=== PATIENT | male | born 1950 | race Caucasian/White ===

== ENCOUNTER 2021-03-09 21:43 | Inpatient (IN) | payer OTHER ==
[~2021-03-09] VITALS: Ht 175.3 cm; Wt 90.7 kg
[2021-03-09] MEDS ORDERED: diphenhydrAMINE 50 MG/1 ML VIAL IV ONE (22:15)
[2021-03-09] MEDS ORDERED: IV NORMAL SALINE 1000 ML BAG IV ONE (22:15)
[2021-03-09] MEDS ORDERED: METOCLOPRAMIDE HCL 10 MG/2 ML VIAL IV ONE (22:15)
[2021-03-09] MEDS ORDERED: KETOROLAC TROMETHAMINE 30 MG INJ IVP ONE (22:15)
[2021-03-09] MEDS ORDERED: diphenhydrAMINE 50 MG/1 ML VIAL ONE (23:16)
[2021-03-09] MEDS ORDERED: METOCLOPRAMIDE HCL 10 MG/2 ML VIAL ONE (23:17)
[2021-03-09] MEDS ORDERED: KETOROLAC TROMETHAMINE 30 MG INJ ONE (23:17)
[2021-03-09 23:29] LABS: HEMATOCRIT 37.2 % (36.7-47.1); MEAN CORPUSCULAR VOLUME 94.4 fL (73.0-96.2); PLATELET COUNT (AUTO) 205 K/uL (152-348)
[2021-03-09 23:53] LABS: CREATININE 1.7 mg/dL (0.6-1.3); POTASSIUM 4.2 mmol/L (3.5-5.1)
[2021-03-10] MEDS ORDERED: FUROSEMIDE 40 MG/4 ML VIAL IV ONE (00:30)
[2021-03-10] MEDS ORDERED: CLOP75TA15 PO (01:17)
[2021-03-10] MEDS ORDERED: RIVA20TA PO (01:17)
[2021-03-10] MEDS ORDERED: PREG200C28 PO (01:17)
[2021-03-10] MEDS ORDERED: IBUP-1957 PO (01:17)
[2021-03-10] MEDS ORDERED: EZET10TA15 PO (01:17)
[2021-03-10] MEDS ORDERED: LOSA100T31 PO (01:17)
[2021-03-10] MEDS ORDERED: FLUT16SP16 NS (01:17)
[2021-03-10] MEDS ORDERED: TAMS-3 PO (01:17)
[2021-03-10] MEDS ORDERED: SITA50TA PO (01:17)
[2021-03-10] MEDS ORDERED: METO25TA6 PO (01:17)
[2021-03-10] MEDS ORDERED: GLIP10TA11 PO (01:17)
[2021-03-10] MEDS ORDERED: EMPA10TA PO (01:17)
[2021-03-10] MEDS ORDERED: CETI-90 PO (01:17)
[2021-03-10] MEDS ORDERED: ATOR80TA PO (01:17)
[2021-03-10] MEDS ORDERED: AMLO2.5T4 PO (01:17)
[2021-03-10] MEDS ORDERED: FUROSEMIDE 40 MG/4 ML VIAL ONE (01:43)
--- NOTE | 2021-03-10 01:46 | NUR ---
Pt moved without difficulty from 5A to 4B because a new pt in the waiting room is r/o covid and needed a single room. fresh VS obtained. 116/67, 65bpm, 97% RA, 16 rpm.
--- NOTE | 2021-03-10 03:26 | NUR ---
PAGED EPIC PANEL, WAITING FOR MARTHA TITUS STRUCTURES MECHANIC TO CALL BACK.
--- NOTE | 2021-03-10 03:32 | NUR ---
DR ASIF SPOKE TO ARIELA WET ROOM SUPERVISOR HOSPITAL EDUCATION COORDINATOR FOR [facility] WHO ACCEPTED PATIENT.
[2021-03-10] MEDS ORDERED: Z GUARD REMEDY PASTE 57 GM TUBE TOP PRN (05:30)
[2021-03-10] MEDS ORDERED: ACETAMINOPHEN 325 MG TABLET PO PRN (05:30)
[2021-03-10] MEDS ORDERED: MAGNESIUM HYDROXIDE 30 ML LIQUID UDC PO PRN (05:30)
[2021-03-10] MEDS ORDERED: ONDANSETRON 4 MG/2 ML VIAL IV PRN (05:30)
[2021-03-10] MEDS ORDERED: TAMSULOSIN HCL 0.4 MG CAP.SR.24H PO ONE (05:30)
--- NOTE | 2021-03-10 08:31 | NUR ---
Charge nurse Mao just informed me that pt is assigned to room 321 and to call them for report and try to expodite transport upstairs to tele. Pt is resting comfortably, VSS, in no appearent distress. Pt waiting patiently for transfer upstairs.
[2021-03-10] MEDS ORDERED: CLOPIDOGREL 75 MG TABLET PO SCH (09:00)
[2021-03-10] MEDS ORDERED: CETIRIZINE HCL 10 MG TABLET PO SCH (09:00)
[2021-03-10] MEDS ORDERED: LOSARTAN POTASSIUM 50 MG TABLET PO SCH (09:00)
[2021-03-10] MEDS: glipiZIDE 10 MG TABLET PO SCH ×2 (09:00→17:27)
[2021-03-10] MEDS: IBUPROFEN 800 MG TABLET PO SCH ×3 (09:00→17:27)
[2021-03-10] MEDS ORDERED: FLUTICASONE PROP NASAL SPRAY 16 GM BOTTLE NS SCH (09:00)
[2021-03-10] MEDS: PREGABALIN 100 MG CAPSULE PO SCH ×2 (09:00→17:00)
--- NOTE | 2021-03-10 10:00 | NUR ---
Pt given breakfast tray and set up to eat breakfast. approx 65% of tray eaten. Morning meds given without difficulty. licensed final expense agents called to recieve report. Thorough report given to senior telecommunications consultant using SBAR method. Floor RN gave green light transport diane. Pt is being loaded up and prepared for transfer to room 327. Pt stable VSS, BP: 127/68, 92bpm,16rpm,97% RA. No s/sx of distress present.
[2021-03-10] MEDS ORDERED: CLOPIDOGREL 75 MG TABLET ONE (10:49)
[2021-03-10] MEDS ORDERED: IBUPROFEN 800 MG TABLET ONE (10:51)
--- NOTE | 2021-03-10 11:00 | NUR ---
ADMITTED PATIENT 70 YEARS OLD MALE FROM ED BY KERVIN WITH DX OF CHF PATIENT PLACED INTO BED FIXED AND MADE COMFORTABLE HE IS ALERT AND ORIENTED DENIES PAIN OR DISCOMFORTS AT THIS TIME PATIENT ORIENTED TO HIS ROOM AND HOSPITAL PROTOCOL ON ROOM AIR WITH NO SHORTNESS OF BREATH WILL CONTINUE TO OBSERVE.
[2021-03-10 12:00] VITALS: BP 102/59
[2021-03-10 12:10] LABS: HEMATOCRIT 37.9 % (36.7-47.1); MEAN CORPUSCULAR HEMOGLOBIN 31.4 uug (23.8-33.4); MEAN CORPUSCULAR VOLUME 95.7 fL (73.0-96.2); PLATELET COUNT (AUTO) 201 K/uL (152-348)
[2021-03-10 12:23] LABS: CREATININE 1.6 mg/dL (0.6-1.3); MAGNESIUM 1.8 mg/dL (1.8-2.4); POTASSIUM 4.1 mmol/L (3.5-5.1)
--- NOTE | 2021-03-10 13:31 | NUR ---
PATIENT SEEN BY MELI LEDEZMA AND SHE STATED THAT SHE MIGHT DISCHARGE PATIENT HOME TODAY BUT STATED TO SEND URINE FOR A URINALYSIS FIRST AND SHE WILL REVIEW AND DISCHARGE PATIENT LATER TODAY.
--- NOTE | 2021-03-10 16:00 | NUR ---
NOTED DISCHARGE ORDER PATIENT TO BE DISCHARGED TODAY HOME AND HE IS AWARE WILL GIVE URINE SPECIMEN SOON HE CAN.
[2021-03-10 16:13] VITALS: BP 116/60
[2021-03-10] MEDS ORDERED: RIVAROXABAN 10 MG TABLET PO SCH (18:00)
--- NOTE | 2021-03-10 18:30 | NUR ---
DISCHARGE INSTRUCTIONS GIVEN AND PATIENT INSTRUCTED THAT HE IS DISCHARGED AND WILL NEED TO CALL HIS SHIPPING LEAD PERSON FOR A FOLLOW UP APPOINTMENT WITHIN THE NEXT ONE TO TWO WEEKS AND HE EXPRESSED UNDERSTANDING STATED WILL LIKELY LEAVE AROUND [address] [employer] WILL ENDORSE ALL HIS DISCHARGE PAPER WORKS ARE SIGNED ALREADY [employer]AXI VOUCHER PROVIDED BY THE SUP ALSO JIMMY WILL CALL THE TAXI WHEN HE IS READY TO LEAVE.
[2021-03-10 18:40] LABS: *BILIRUBIN,URIN NEGATIVE (NEGATIVE); *CLARITY,URINE CLEAR (CLEAR); *COLOR,URINE YELLOW (YELLOW); *KETONES,URINE NEGATIVE (NEGATIVE); *UROBILINOGEN,URINE 0.2 E.U./dl (NORMAL); LEUKOCYTE ESTERASE ,URINE NEGATIVE (NEGATIVE); NITRITE, URINE NEGATIVE (NEGATIVE)
[2021-03-10 18:43] LABS: *BLOOD, URINE TRACE (NEGATIVE); UGLUCOSE 3+ (NEGATIVE)
[2021-03-10 19:01] LABS: BACTERIA,URINE NONE SEEN /HPF (NONE SEEN); SQUAMOUS EPITHELIAL CELL,UR FEW /HPF (NONE SEEN); WBC,URINE 0-3 /HPF (0-3)
[2021-03-10] MEDS ORDERED: EZETIMIBE 10 MG TABLET PO SCH (21:00)
[2021-03-10] MEDS ORDERED: ATORVASTATIN 40 MG TABLET PO SCH (21:00)
--- NOTE | 2021-03-10 21:29 | NUR ---
NO TAXI AVAILABLE, PT REQUESTED A FRIEND TO PICK HIM UP VIA HIS CAR, DISCHARGED IN APPARENTLY FAIR CONDITION, ALL PERSONAL BELONGINGS PROVIDED TO PT.
== END 2021-03-10 21:30 | disposition home or self-care (01) | DRG 291 ==
LOC: ER 21:46 → TRANSITION 03-10 03:30 → TELE3 03-10 10:38
PROVIDERS: ADMIT Nurse Practitioner Acute Care; ATTEND Registered Nurse
DX: I13.0 Hypertensive heart and chronic kidney disease with heart failure and stage 1 through stage 4 chronic kidney disease, or unspecified chronic kidney disease (principal); I50.31 Acute diastolic (congestive) heart failure; I69.354 Hemiplegia and hemiparesis following cerebral infarction affecting left non-dominant side; I48.0 Paroxysmal atrial fibrillation; Z79.02 Long term (current) use of antithrombotics/antiplatelets; Z79.01 Long term (current) use of anticoagulants; N18.9 Chronic kidney disease, unspecified; I65.21 Occlusion and stenosis of right carotid artery; E66.9 Obesity, unspecified; Z68.29 Body mass index [BMI] 29.0-29.9, adult; E11.22 Type 2 diabetes mellitus with diabetic chronic kidney disease; Z87.891 Personal history of nicotine dependence; Z79.84 Long term (current) use of oral hypoglycemic drugs; I49.1 Atrial premature depolarization; I49.3 Ventricular premature depolarization; Z71.3 Dietary counseling and surveillance
CPT/HCPCS: 36415; 70030-TC; 71045; 83735; 85025; 93005; 93307; A4663; G0378; J1200; J1885; J1940; J2765; J3535; J7030

== ENCOUNTER 2021-04-03 18:17 | Emergency (ER) | payer MEDICARE, OTHER ==
[~2021-04-03] VITALS: Ht 182.9 cm; Wt 99.8 kg
[~2021-04-03 18:17] MED LIST: AMLO2.5T4 PO; ATOR80TA PO; CETI-90 PO; EMPA10TA PO; EZET10TA15 PO; FLUT16SP16 NS; GLIP10TA11 PO; IBUP-1957 PO; LOSA100T31 PO; METO25TA6 PO; PREG200C28 PO; RIVA20TA PO; SITA50TA PO; TAMS-3 PO
--- NOTE | 2021-04-03 19:26 | NUR ---
No bleeding noted after Dr Garcia place surgicel foam.
[2021-04-03 19:34] VITALS: BP 110/70
--- NOTE | 2021-04-03 19:34 | NUR ---
Patient discharged to home in stable condition with friend taking patient home. Written and verbal after care instructions given. Patient verbalizes understanding of instructions. Stressed follow up or return to ER for worsening s/s.
== END 2021-04-03 19:35 | disposition home or self-care (01) ==
LOC: ER 18:19
DX: S61.012A Laceration without foreign body of left thumb without damage to nail, initial encounter (principal); I50.9 Heart failure, unspecified; E11.9 Type 2 diabetes mellitus without complications; Z91.018 Allergy to other foods; Z79.1 Long term (current) use of non-steroidal anti-inflammatories (NSAID); Z79.899 Other long term (current) drug therapy; W26.0XXA Contact with knife, initial encounter; Y93.89 Activity, other specified; Y92.89 Other specified places as the place of occurrence of the external cause; Y99.8 Other external cause status
CPT/HCPCS: A4217; A4663

== ENCOUNTER 2024-07-08 19:25 | Inpatient (IN) | payer MEDICARE, OTHER ==
[~2024-07-08] VITALS: Ht 182.9 cm; Wt 79.4 kg
[2024-07-08 20:12] LABS: BASOPHILS # (AUTO) 0.1 K/UL (0.0-0.2); BASOPHILS % (AUTO) 0.9 % (0.0-2.0); EOSINOPHILS # (AUTO) 0.2 K/uL (0.0-0.7); EOSINOPHILS % (AUTO) 2.4 % (0.0-7.0); HEMATOCRIT 34.7 % (36.7-47.1); HEMOGLOBIN 11.6 g/dL (12.5-16.3); LYMPHOCYTES % (AUTO) 11.1 % (20.5-51.5); MEAN CORPUSCULAR HEMOGLOBIN 30.9 uug (23.8-33.4); MEAN CORPUSCULAR HGB CONC 33 g/dL (32.5-36.3); MEAN CORPUSCULAR VOLUME 92.8 fL (73.0-96.2); MONOCYTES # (AUTO) 0.7 K/uL (0.1-1.30); MONOCYTES % (AUTO) 7.8 % (0.0-11.0); NEUTROPHILS # (AUTO) 6.7 K/uL (1.8-8.9); NEUTROPHILS % (AUTO) 77.8 % (38.5-71.5); PLATELET COUNT (AUTO) 414 K/uL (152-348); RED BLOOD CELL COUNT(AUTO) 3.74 MIL/uL (4.06-5.63); RED CELL DISTRIBUTION WIDTH 15.2 % (12.1-16.2); WHITE BLOOD COUNT (AUTO) 8.6 K/uL (3.6-10.2)
[2024-07-08 20:16] LABS: DIFFERENTIAL COMMENT 1
[2024-07-08 20:25] LABS: CALCIUM 9.3 mg/dL (8.5-10.1); CARBON DIOXIDE 30 mmol/L (21-32); CHLORIDE 108 mmol/L (98-107); CREATININE 1.3 mg/dL (0.6-1.3); GLUCOSE 260 mg/dL (74-106); POTASSIUM 4.8 mmol/L (3.5-5.1); SODIUM SERUM 144 mmol/L (136-145); UREA NITROGEN, BLOOD 29 mg/dL (7-18)
[2024-07-08 20:33] LABS: *BILIRUBIN,URIN NEGATIVE (NEGATIVE); *CLARITY,URINE CLEAR (CLEAR); *COLOR,URINE YELLOW (YELLOW); *KETONES,URINE NEGATIVE (NEGATIVE); *PROTEIN,URINE 2+ (NEGATIVE); *UROBILINOGEN,URINE 0.2 E.U./dl (NORMAL); LEUKOCYTE ESTERASE ,URINE NEGATIVE (NEGATIVE); NITRITE, URINE NEGATIVE (NEGATIVE); PH,URINE 5.5 (5.0-8.0); UGLUCOSE TRACE (NEGATIVE)
[2024-07-08 20:33] LABS: ALANINE AMINOTRANSFERASE 20 U/L (16-63); ALBUMIN 2.7 g/dL (3.4-5.0); ALKALINE PHOSPHATASE 110 U/L (50-136); ASPARTATE AMINOTRANSFERASE 14 U/L (15-37); BILIRUBIN,DIRECT 0.1 mg/dL (0.0-0.2); BILIRUBIN,TOTAL 0.3 mg/dL (0.2-1.0); TOTAL PROTEIN, SERUM 6.3 g/dL (6.4-8.2)
[2024-07-08 20:35] LABS: *BLOOD, URINE NEGATIVE (NEGATIVE); RBC,URINE 0-3 /HPF (0-3); WBC,URINE 0-3 /HPF (0-3)
[2024-07-08 20:36] LABS: ETHANOL < 3 MG/DL (0-10)
[2024-07-08 20:43] LABS: *AMPHETAMINE, URINE NEGATIVE (NEGATIVE); *BARBITURATE, URINE NEGATIVE (NEGATIVE); *BENZODIAZEPINE, URINE NEGATIVE (NEGATIVE); *CANNABINOID, URINE NEGATIVE (NEGATIVE); *COCCAINE, URINE NEGATIVE (NEGATIVE); *OPIATE, URINE NEGATIVE (NEGATIVE); *PHENCYCLIDINE SCREEN,URINE NEGATIVE (NEGATIVE); FENTANYL, URINE NEGATIVE (NEGATIVE)
[2024-07-08] MEDS ORDERED: HALOPERIDOL LACTATE 5 MG/1 ML VIAL ONE (20:57)
[2024-07-08] MEDS: HALOPERIDOL LACTATE 5 MG/1 ML VIAL IM ONE (21:28)
[2024-07-09] MEDS ORDERED: ACETAMINOPHEN 325 MG TABLET PO PRN (02:30)
[2024-07-09] MEDS ORDERED: MAGNESIUM HYDROXIDE 30 ML LIQUID UDC PO PRN (02:30)
[2024-07-09] MEDS ORDERED: ZOLPIDEM 5 MG TABLET PO PRN (02:30)
[2024-07-09] MEDS: BLOOD SUGAR DIAGNOSTIC 1 EACH STRIP VI ONE (02:30)
[2024-07-09] MEDS ORDERED: MAG HYDROX/AL HYDROX/SIMETH 30 ML LIQUID UDC PO PRN (02:30)
[2024-07-09] MEDS: QUETIAPINE FUMARATE 25 MG TABLET PO ONE (02:30)
[2024-07-09] MEDS ORDERED: LIDO5CRE18 TP (03:20)
[2024-07-09] MEDS ORDERED: LOPE2TAB25 PO (03:20)
[2024-07-09] MEDS ORDERED: TIZA-180 PO (03:20)
[2024-07-09] MEDS ORDERED: FLUT16SP BNOSTRILS (03:20)
[2024-07-09] MEDS ORDERED: TAMS-3 PO (03:20)
[2024-07-09] MEDS ORDERED: SACU1TAB PO (03:20)
[2024-07-09] MEDS ORDERED: INSU100V39 SQ ×2 (03:20)
[2024-07-09] MEDS ORDERED: PREG150C PO (03:20)
[2024-07-09] MEDS ORDERED: IPRA0.2S48 NEB (03:20)
[2024-07-09] MEDS ORDERED: QUET50TA PO (03:20)
[2024-07-09] MEDS ORDERED: BENZ-13 PO (03:20)
[2024-07-09] MEDS ORDERED: FOLI0.8T2 PO (03:20)
[2024-07-09] MEDS ORDERED: SENN8.6T19 PO (03:20)
[2024-07-09] MEDS ORDERED: DOCU100C36 PO (03:20)
[2024-07-09] MEDS ORDERED: CARV3.122 PO (03:20)
[2024-07-09] MEDS ORDERED: QUET25TA36 PO (03:20)
[2024-07-09] MEDS ORDERED: CHOL10005 PO (03:20)
[2024-07-09] MEDS ORDERED: SERT-440 PO (03:20)
[2024-07-09] MEDS ORDERED: MAGN400O6 PO (03:20)
[2024-07-09] MEDS ORDERED: NALO4SPR BNOSTRILS (03:20)
[2024-07-09] MEDS ORDERED: FURO20TA4 PO (03:20)
[2024-07-09] MEDS ORDERED: EZET10TA15 PO (03:20)
[2024-07-09] MEDS ORDERED: POLY17PO4 PO (03:20)
[2024-07-09] MEDS ORDERED: INSU100I26 SQ (03:20)
[2024-07-09] MEDS ORDERED: ACET325T53 PO (03:20)
[2024-07-09] MEDS ORDERED: HYDR-894 PO (03:20)
[2024-07-09] MEDS ORDERED: RIVA15TA PO (03:20)
[2024-07-09] MEDS ORDERED: BISA10SU61 RC (03:20)
[2024-07-09] MEDS ORDERED: NA P133E RC (03:20)
[2024-07-09] MEDS ORDERED: GLUC1KIT IM (03:20)
[2024-07-09] MEDS ORDERED: DIPH25TA25 PO (03:20)
[2024-07-09] MEDS ORDERED: QUETIAPINE FUMARATE 25 MG TABLET PO PRN (04:15)
[2024-07-09 08:28] VITALS: BP 125/56; TEMP 98.5; O2SAT 98
[2024-07-09] MEDS ORDERED: IPRA3AMP23 IH (10:31)
[2024-07-09] MEDS ORDERED: FLEET ENEMA 133 ML BOTTLE RC PRN (11:45)
[2024-07-09] MEDS ORDERED: MIRALAX 17 GM POWD.PACK PO PRN (11:45)
[2024-07-09] MEDS ORDERED: BISACODYL 10 MG SUPP.RECT RC PRN (11:45)
[2024-07-09] MEDS ORDERED: DEXTROSE 50% 50 ML DISP.SYRIN IV PRN (11:45)
[2024-07-09] MEDS: DIVALPROEX 125 MG TABLET.DR PO SCH (12:15)
[2024-07-09] MEDS: BLOOD SUGAR DIAGNOSTIC 1 EACH STRIP VI SCH (16:19)
[2024-07-09] MEDS: PREGABALIN 50 MG CAPSULE PO SCH (16:30)
[2024-07-09] MEDS: SENNOSIDES 1 TABLET PO SCH (16:31)
[2024-07-09] MEDS: CARVEDILOL 3.125 MG TABLET PO SCH (16:34)
[2024-07-09 17:17] VITALS: BP 128/58; TEMP 98.5; O2SAT 98
[2024-07-09 19:46] VITALS: BP 163/79; TEMP 98; O2SAT 94
[2024-07-09] MEDS: TAMSULOSIN HCL 0.4 MG CAP.SR.24H PO SCH (21:09)
[2024-07-09] MEDS: QUETIAPINE FUMARATE 25 MG TABLET PO SCH (21:10)
[2024-07-09] MEDS: INSULIN REGULAR, HUMAN 1000 UNIT/10 ML VIAL SQ PRN (21:50)
[2024-07-10 08:19] VITALS: BP 114/66; TEMP 98; O2SAT 98
[2024-07-10] MEDS: FOLIC ACID/VITAMIN B COMP W-C TABLET PO SCH (08:57)
[2024-07-10] MEDS: CHOLECALCIFEROL 1,000 UNIT TABLET PO SCH (08:57)
[2024-07-10] MEDS: SACUBITRIL/VALSARTAN 24 MG-26 TABLET PO SCH (08:58)
[2024-07-10] MEDS: RIVAROXABAN 15 MG TABLET PO SCH (09:00)
[2024-07-10 16:09] VITALS: BP 116/72; TEMP 98; O2SAT 98
[2024-07-10 20:00] VITALS: BP 110/53; TEMP 98.5; O2SAT 95
[2024-07-11 08:03] VITALS: BP 124/56; TEMP 98; O2SAT 90
[2024-07-11] MEDS: FUROSEMIDE 20 MG TABLET PO SCH (08:37)
[2024-07-11] MEDS: GLIMEPIRIDE 2 MG TABLET PO SCH (08:40)
[2024-07-11 15:42] VITALS: BP 106/54; TEMP 98; O2SAT 96
[2024-07-11 20:00] VITALS: BP 110/60; TEMP 97.6; O2SAT 95
[2024-07-11] MEDS: QUETIAPINE FUMARATE 25 MG TABLET PO SCH (20:22)
[2024-07-11] MEDS: DIVALPROEX 250 MG TABLET.DR PO SCH (20:22)
[2024-07-11] MEDS ORDERED: DIVALPROEX 125 MG TABLET.DR PO SCH (21:00)
[2024-07-12] MEDS ORDERED: ALBUTEROL SULFATE 2.5 MG/3 ML NEBU NEB PRN (07:30)
[2024-07-12 08:22] VITALS: BP 129/61; TEMP 98.5; O2SAT 98
[2024-07-12] MEDS: GLIMEPIRIDE 2 MG TABLET PO SCH (09:30)
[2024-07-12] MEDS: FLUTICASONE/VILANTEROL 1 EACH BLST.W.DEV INH SCH (09:36)
[2024-07-12 16:02] VITALS: BP 106/54; TEMP 98; O2SAT 96
[2024-07-12 19:44] VITALS: BP 126/66; TEMP 98.6; O2SAT 96
[2024-07-13 07:33] LABS: BASOPHILS # (AUTO) 0.1 K/UL (0.0-0.2); BASOPHILS % (AUTO) 1.4 % (0.0-2.0); EOSINOPHILS # (AUTO) 0.2 K/uL (0.0-0.7); EOSINOPHILS % (AUTO) 3.2 % (0.0-7.0); HEMATOCRIT 33.7 % (36.7-47.1); HEMOGLOBIN 11.1 g/dL (12.5-16.3); LYMPHOCYTES # (AUTO) 1.6 K/uL (0.8-4.8); LYMPHOCYTES % (AUTO) 27.1 % (20.5-51.5); MEAN CORPUSCULAR HEMOGLOBIN 30.8 uug (23.8-33.4); MEAN CORPUSCULAR HGB CONC 33 g/dL (32.5-36.3); MEAN CORPUSCULAR VOLUME 93.3 fL (73.0-96.2); MONOCYTES # (AUTO) 0.6 K/uL (0.1-1.30); MONOCYTES % (AUTO) 9.3 % (0.0-11.0); NEUTROPHILS # (AUTO) 3.5 K/uL (1.8-8.9); PLATELET COUNT (AUTO) 332 K/uL (152-348); RED BLOOD CELL COUNT(AUTO) 3.61 MIL/uL (4.06-5.63); RED CELL DISTRIBUTION WIDTH 15.3 % (12.1-16.2)
[2024-07-13 07:42] LABS: DIFFERENTIAL COMMENT 1
[2024-07-13 07:59] LABS: THYROID STIMULATING HORMONE 2.174 mIU/mL (0.358-3.740)
[2024-07-13 08:13] LABS: ALANINE AMINOTRANSFERASE 16 U/L (16-63); ALBUMIN 2.4 g/dL (3.4-5.0); ALKALINE PHOSPHATASE 89 U/L (50-136); ASPARTATE AMINOTRANSFERASE 13 U/L (15-37); BILIRUBIN,TOTAL 0.1 mg/dL (0.2-1.0); CALCIUM 8.7 mg/dL (8.5-10.1); CARBON DIOXIDE 31 mmol/L (21-32); CHLORIDE 110 mmol/L (98-107); CREATININE 1.1 mg/dL (0.6-1.3); GLUCOSE 145 mg/dL (74-106); MAGNESIUM 1.9 mg/dL (1.8-2.4); PHOSPHOROUS 4.5 mg/dL (2.5-4.9); POTASSIUM 4.4 mmol/L (3.5-5.1); SODIUM SERUM 144 mmol/L (136-145); TOTAL PROTEIN, SERUM 5.4 g/dL (6.4-8.2); UREA NITROGEN, BLOOD 40 mg/dL (7-18)
[2024-07-13 08:58] VITALS: BP 125/71; TEMP 98.5; O2SAT 98
[2024-07-13] MEDS: ASPIRIN/ACETAMINOPHEN/CAFFEINE TABLET PO PRN (15:22)
[2024-07-13 16:15] VITALS: BP 123/50; TEMP 97.6; O2SAT 95
[2024-07-13 20:00] VITALS: BP 100/52; TEMP 97.9; O2SAT 91
[2024-07-14 08:28] VITALS: BP 119/68; TEMP 98.5; O2SAT 98
[2024-07-14] MEDS: QUETIAPINE FUMARATE 25 MG TABLET PO PRN (09:05)
[2024-07-14 16:44] VITALS: BP 118/51; TEMP 97.7; O2SAT 98
[2024-07-14 20:00] VITALS: BP 150/61; TEMP 97.3; O2SAT 95
[2024-07-15] MEDS: ZOLPIDEM 5 MG TABLET PO PRN (00:29)
[2024-07-15 08:01] VITALS: BP 148/52; TEMP 97.6; O2SAT 97
[2024-07-15] MEDS: DIVALPROEX 125 MG TABLET.DR PO SCH (13:13)
[2024-07-15] MEDS ORDERED: DIVALPROEX 250 MG TABLET.DR PO SCH (14:00)
[2024-07-15 16:00] VITALS: BP 110/45; TEMP 97.2; O2SAT 97
[2024-07-15 20:24] VITALS: BP 136/61; TEMP 98.1; O2SAT 100
[2024-07-16 08:00] VITALS: BP 101/71; TEMP 97.6; O2SAT 99
[2024-07-16 16:07] VITALS: BP 107/58; TEMP 97.6; O2SAT 97
[2024-07-16 20:10] VITALS: BP 104/62; TEMP 97.5; O2SAT 98
[2024-07-17 08:08] VITALS: BP 135/51; TEMP 98; O2SAT 92
[2024-07-17] MEDS: QUETIAPINE FUMARATE 25 MG TABLET PO SCH ×2 (08:24→20:30)
[2024-07-17 15:57] VITALS: BP 130/54; TEMP 98; O2SAT 96
[2024-07-18 07:39] VITALS: BP 139/58; TEMP 98; O2SAT 94
[2024-07-18 15:40] VITALS: BP 107/78; TEMP 98; O2SAT 94
[2024-07-18 20:00] VITALS: BP 110/75; TEMP 98.1; O2SAT 95
[2024-07-19 08:18] VITALS: BP 103/55; TEMP 98; O2SAT 90
[2024-07-19] MEDS ORDERED: HYDROCODONE/APAP 10-325 MG TABLET PO PRN (15:30)
[2024-07-19 16:11] VITALS: BP 104/45; TEMP 98; O2SAT 90
[2024-07-19 20:00] VITALS: BP 122/71; TEMP 98.5; O2SAT 93
[2024-07-20 08:07] VITALS: BP 134/57; TEMP 97.7; O2SAT 94
[2024-07-20 16:21] VITALS: BP 107/47; TEMP 97.3; O2SAT 93
[2024-07-21 08:20] VITALS: BP 135/57; TEMP 98; O2SAT 97
[2024-07-21 16:20] VITALS: BP 118/72; TEMP 98.1; O2SAT 98
[2024-07-21 20:00] VITALS: BP 117/55; TEMP 97.7; O2SAT 92
[2024-07-22 08:43] VITALS: BP 122/61; TEMP 98.1; O2SAT 98
[2024-07-22 19:58] VITALS: BP 124/64; TEMP 98.1; O2SAT 96
[2024-07-23 07:29] LABS: BASOPHILS % (AUTO) 0.8 % (0.0-2.0); EOSINOPHILS # (AUTO) 0.2 K/uL (0.0-0.7); EOSINOPHILS % (AUTO) 4.3 % (0.0-7.0); HEMATOCRIT 36.5 % (36.7-47.1); HEMOGLOBIN 11.9 g/dL (12.5-16.3); LYMPHOCYTES # (AUTO) 1.3 K/uL (0.8-4.8); LYMPHOCYTES % (AUTO) 25.5 % (20.5-51.5); MEAN CORPUSCULAR HEMOGLOBIN 30.4 uug (23.8-33.4); MEAN CORPUSCULAR HGB CONC 33 g/dL (32.5-36.3); MEAN CORPUSCULAR VOLUME 93.6 fL (73.0-96.2); MONOCYTES # (AUTO) 0.5 K/uL (0.1-1.30); MONOCYTES % (AUTO) 9.7 % (0.0-11.0); NEUTROPHILS # (AUTO) 3.1 K/uL (1.8-8.9); NEUTROPHILS % (AUTO) 59.7 % (38.5-71.5); PLATELET COUNT (AUTO) 183 K/uL (152-348); RED CELL DISTRIBUTION WIDTH 16.1 % (12.1-16.2); WHITE BLOOD COUNT (AUTO) 5.3 K/uL (3.6-10.2)
[2024-07-23 07:41] LABS: CALCIUM 8.9 mg/dL (8.5-10.1); CARBON DIOXIDE 32 mmol/L (21-32); CHLORIDE 110 mmol/L (98-107); CREATININE 1.2 mg/dL (0.6-1.3); GLUCOSE 107 mg/dL (74-106); MAGNESIUM 1.9 mg/dL (1.8-2.4); PHOSPHOROUS 3.4 mg/dL (2.5-4.9); POTASSIUM 4.8 mmol/L (3.5-5.1); SODIUM SERUM 147 mmol/L (136-145); UREA NITROGEN, BLOOD 40 mg/dL (7-18)
[2024-07-23 07:44] LABS: DIFFERENTIAL COMMENT 1
[2024-07-23] MEDS: QUETIAPINE FUMARATE 25 MG TABLET PO SCH (13:09)
[2024-07-24 15:45] VITALS: BP 131/58; TEMP 98; O2SAT 99
== END 2024-07-24 16:00 | DRG 885 ==
LOC: ER 19:25 → GPS 22:48
PROVIDERS: ADMIT Psychiatry & Neurology Psychiatry; ATTEND Internal Medicine
DX: F39 Unspecified mood [affective] disorder (principal); N18.9 Chronic kidney disease, unspecified; N17.0 Acute kidney failure with tubular necrosis; E11.65 Type 2 diabetes mellitus with hyperglycemia; U07.1 COVID-19; I69.354 Hemiplegia and hemiparesis following cerebral infarction affecting left non-dominant side; R45.851 Suicidal ideations; E44.0 Moderate protein-calorie malnutrition; J98.11 Atelectasis; D68.59 Other primary thrombophilia; F01.511 Vascular dementia, unspecified severity, with agitation; I13.0 Hypertensive heart and chronic kidney disease with heart failure and stage 1 through stage 4 chronic kidney disease, or unspecified chronic kidney disease; F31.9 Bipolar disorder, unspecified; I44.4 Left anterior fascicular block; I48.0 Paroxysmal atrial fibrillation; Z79.01 Long term (current) use of anticoagulants; Z79.899 Other long term (current) drug therapy; Z87.891 Personal history of nicotine dependence; E11.42 Type 2 diabetes mellitus with diabetic polyneuropathy; N40.0 Benign prostatic hyperplasia without lower urinary tract symptoms; M15.9 Polyosteoarthritis, unspecified; Z68.23 Body mass index [BMI] 23.0-23.9, adult; E78.1 Pure hyperglyceridemia; E88.09 Other disorders of plasma-protein metabolism, not elsewhere classified; Z91.410 Personal history of adult physical and sexual abuse; Z91.411 Personal history of adult psychological abuse; Z91.199 Patient's noncompliance with other medical treatment and regimen due to unspecified reason; Z79.4 Long term (current) use of insulin; Z74.09 Other reduced mobility; E66.9 Obesity, unspecified; K21.9 Gastro-esophageal reflux disease without esophagitis; D63.1 Anemia in chronic kidney disease; E11.22 Type 2 diabetes mellitus with diabetic chronic kidney disease; R80.9 Proteinuria, unspecified; G89.29 Other chronic pain; I50.9 Heart failure, unspecified; G47.00 Insomnia, unspecified
CPT/HCPCS: 36415; 70450; 71045; 80164; 83735; 84100; 84443; 84484; 85025; A4606; A4663; A9150; G0480; J1630; J1815; J3490